=== PATIENT | female | born 1975 | race Caucasian/White ===

== ENCOUNTER 2018-08-06 08:29 | Emergency (ER) | payer MEDICAID ==
[~2018-08-06] VITALS: Ht 167.6 cm; Wt 125.3 kg
[2018-08-06 08:34] VITALS: BP 123/48
--- NOTE | 2018-08-06 08:49 | NUR ---
pt amb to bed 6
--- NOTE | 2018-08-06 08:52 | NUR ---
PATIENT PRESENTS TO ED WITH c/o chronic pain pain, denies recent injury, denies stool incontinence ambulatory with steady gait DENIES N/V/D; SKIN IS PINK/WARM/DRY; AAOX4 WITH EVEN AND STEADY GAIT; LUNGS CLEAR BL; HR EVEN AND REGULAR; PT DENIES ANY FEVER, CP, SOB, OR COUGH AT THIS TIME; PATIENT STATES PAIN OF 10/10 AT THIS TIME; VSS; PATIENT POSITIONED FOR COMFORT; HOB ELEVATED; BEDRAILS UP X2; BED DOWN. ER MD MADE AWARE OF PT STATUS.
[2018-08-06] MEDS ORDERED: KETOROLAC 60 MG/2 ML VIAL IM ONE (09:35)
[2018-08-06] MEDS ORDERED: ONDANSETRON 4 MG ODT PO ONE (11:05)
[2018-08-06] MEDS ORDERED: MORPHINE SULFATE 4 MG/ML SYR IM ONE (11:05)
[2018-08-06 11:47] VITALS: BP 129/81
--- NOTE | 2018-08-06 11:47 | NUR ---
Patient discharged with v/s stable. Written and verbal after care instructions given and explained. Patient verbalized understanding. Ambulatory with steady gait. All questions addressed prior to discharge. Advised to follow up with PMD.
== END 2018-08-06 11:47 | disposition home or self-care (01) ==
LOC: MED 08:29
DX: M54.41 Lumbago with sciatica, right side (principal); K21.9 Gastro-esophageal reflux disease without esophagitis; J45.909 Unspecified asthma, uncomplicated; F41.9 Anxiety disorder, unspecified; F32.9 Major depressive disorder, single episode, unspecified; M79.7 Fibromyalgia; Z90.49 Acquired absence of other specified parts of digestive tract; Z88.0 Allergy status to penicillin
CPT/HCPCS: 96372; 99283; J1885; J2270; Q0162

== ENCOUNTER 2019-01-08 12:02 | Emergency (ER) | payer OTHER, MEDICAID ==
[~2019-01-08] VITALS: Ht 154.9 cm; Wt 127.1 kg
[2019-01-08 12:05] VITALS: BP 99/62
[2019-01-08] MEDS ORDERED: FLUO10CA21 PO (12:30)
[2019-01-08] MEDS ORDERED: GABA300C PO (12:30)
[2019-01-08] MEDS ORDERED: HYDR-5123 PO (12:30)
--- NOTE | 2019-01-08 13:19 | NUR ---
AMBULATED TO ER BED 3
[2019-01-08] MEDS ORDERED: KETOROLAC 60 MG/2 ML VIAL IM ONE (14:05)
--- NOTE | 2019-01-08 14:09 | NUR ---
PT BIB SELF C/O COUGH, SORE THROAT, BODY ACHES X 3 DAYS, PAIN 7/10. HX-FIBROMYALGIA, CHRONIC PAIN, VERTIGO MEDS-NORCO, GABAPENTIN PROZAC
--- NOTE | 2019-01-08 15:35 | NUR ---
PROVIDED CRACKED AND APPLE JUICE TO PT. STATES FEELING HUNGRY AND FELLING NAUSEATED.
--- NOTE | 2019-01-08 18:10 | NUR ---
AWAITING DISCHARGE INFORMATION FROM
[2019-01-08 18:12] VITALS: BP 127/55
--- NOTE | 2019-01-08 18:13 | NUR ---
Patient discharged with v/s stable. Written and verbal after care instructions given and explained. Patient alert, oriented and verbalized understanding of instructions. Ambulatory with steady gait. All questions addressed prior to discharge. ID band removed. Patient advised to follow up with PMD. Rx of NAPROSYN 500 MG given. Patient educated on indication of medication including possible reaction and side effects. Opportunity to ask questions provided and answered.
== END 2019-01-08 18:13 | disposition home or self-care (01) ==
LOC: MED 12:02
DX: R09.1 Pleurisy (principal); J45.909 Unspecified asthma, uncomplicated; K21.9 Gastro-esophageal reflux disease without esophagitis; Z79.899 Other long term (current) drug therapy; Z79.891 Long term (current) use of opiate analgesic; Z91.02 Food additives allergy status; Z88.0 Allergy status to penicillin; Z91.09 Other allergy status, other than to drugs and biological substances
CPT/HCPCS: 71046; 96372; 99283; J1885

== ENCOUNTER 2019-06-10 18:30 | Emergency (ER) | payer OTHER ==
[~2019-06-10] VITALS: Ht 167.6 cm; Wt 130.6 kg
[~2019-06-10 18:30] MED LIST: FLUO10CA21 PO; GABA300C PO; HYDR-5123 PO
[2019-06-10 19:15] VITALS: BP 109/60
--- NOTE | 2019-06-10 19:15 | NUR ---
TO BED # 03 AMBULATORY
[2019-06-10] MEDS ORDERED: HYDROcodone/APAP 5/325 MG 1 TAB TAB PO ONE (20:05)
[2019-06-10 20:17] VITALS: BP 109/60
--- NOTE | 2019-06-10 21:17 | NUR ---
Patient discharged with v/s stable. She states pain reduced. 5/10 and tollerable. Written and verbal after care instructions given and explained. Patient alert, oriented and verbalized understanding of instructions. Ambulatory with crutch assist. All questions addressed prior to discharge. ID band removed. Patient advised to follow up with PMD. Rx of [place] given. Patient educated on indication of medication including possible reaction and side effects. Opportunity to ask questions provided and answered.
== END 2019-06-10 20:17 | disposition home or self-care (01) ==
LOC: MED 18:30
DX: M25.562 Pain in left knee (principal); F32.9 Major depressive disorder, single episode, unspecified; J45.909 Unspecified asthma, uncomplicated; K21.9 Gastro-esophageal reflux disease without esophagitis; Z79.899 Other long term (current) drug therapy; Z88.0 Allergy status to penicillin; Z88.8 Allergy status to other drugs, medicaments and biological substances; Z98.890 Other specified postprocedural states
CPT/HCPCS: 73562; 99283

== ENCOUNTER 2019-09-29 16:04 | Emergency (ER) | payer OTHER ==
[~2019-09-29] VITALS: Ht 170.2 cm; Wt 130.2 kg
[2019-09-29 16:07] VITALS: BP 102/49
--- NOTE | 2019-09-29 16:15 | NUR ---
PT TO TRIAGE FOR EKG, THEN TO ER LOBBY UNTIL BED IS AVAILABLE. DR GORDON MADE AWARE
--- NOTE | 2019-09-29 16:54 | NUR ---
PT TO BED 9
--- NOTE | 2019-09-29 16:55 | NUR ---
C/O INTERMITTENT SOB WITH CP RADIAITNG TO L RIBCAGE X 2 WEEKS .PT AOX4 , AFIBRILE ,SCE, ROUND ,SOFT NABS,DENIES N/V NOR DIZZINESS. PH- ASTHMA, FIBROMYALGIA, HERNIATED DISC, GLAUCOMA, BRONCHITIS, VERTIGO, MIGRAINES, ANXIETY, DEPRESSION
--- NOTE | 2019-09-29 16:55 | NUR ---
PT COMFORTABLE IN BED, EMT ADAKU PLACE CHEST LEADS TO PT, SIDE RAILS UP X1 AND LOCK.
--- NOTE | 2019-09-29 17:18 | NUR ---
XRAY AT BEDSIDE.
--- NOTE | 2019-09-29 17:50 | NUR ---
dr love at bedside evaluating pt.
[2019-09-29] MEDS ORDERED: KETOROLAC 30 MG/ML VIAL IM ONE (17:55)
[2019-09-29] MEDS ORDERED: LORazepam 1 MG TAB PO ONE (17:55)
--- NOTE | 2019-09-29 18:28 | NUR ---
NADR, PT DENIES PAIN.
[2019-09-29 18:29] VITALS: BP 116/66
--- NOTE | 2019-09-29 18:29 | NUR ---
Patient discharged with v/s stable. Written and verbal after care instructions given and explained. Patient alert, oriented and verbalized understanding of instructions. Ambulatory with steady gait. All questions addressed prior to discharge. ID band removed. Patient advised to follow up with PMD. Rx of [place] AND NAPROSYN given. Patient educated on indication of medication including possible reaction and side effects. Opportunity to ask questions provided and answered. GIVEN COPY OF XRAY RESULTS PT STATES "OH IT MUST HAVE BEEN MY ANXIETY"- DENIES PAIN
== END 2019-09-29 18:29 | disposition home or self-care (01) ==
LOC: MED 16:04
DX: F41.9 Anxiety disorder, unspecified (principal); R07.9 Chest pain, unspecified; R07.89 Other chest pain; J45.909 Unspecified asthma, uncomplicated; K21.9 Gastro-esophageal reflux disease without esophagitis; Z79.899 Other long term (current) drug therapy; Z88.0 Allergy status to penicillin; Z91.018 Allergy to other foods
CPT/HCPCS: 71045; 93005; 96372; 99283; J1885; Q0092

== ENCOUNTER 2020-09-10 15:24 | Emergency (ER) | payer OTHER ==
[~2020-09-10] VITALS: Ht 167.6 cm; Wt 86.2 kg
[~2020-09-10 15:24] MED LIST changes: +HYDR-5080 PO; -HYDR-5123 PO
[2020-09-10 15:37] VITALS: BP 119/68
--- NOTE | 2020-09-10 15:41 | NUR ---
45YO F C/O LEFT KNEE PAIN X 1 WEEK, WHICH WORSENED THIS MORNING. PT DENIES ANY INJURY OR TRAUMA TO AREA. DENIES NUMBNESS. IN ED, VSS. ABLE TO AMBULATE. 5/5 STRENGTH ON ALL EXTREMITIES. PT POSITIONED COMFORTABLY IN BED WITH 2 SIDERAILS UP. ERMD MADE AWARE OF PT STATUS. PMH - SCIATICA, FIBROMYALGIA, GERD, L MENISCAL TEAR (10YRS AGO)
[2020-09-10] MEDS ORDERED: KETOROLAC 30 MG/ML VIAL IM ONE (15:50)
--- NOTE | 2020-09-10 15:54 | NUR ---
PT TAKEN TO XR VIA W/C.
[2020-09-10] MEDS ORDERED: DICL20GE TP (16:12)
[2020-09-10 16:26] VITALS: BP 119/68
--- NOTE | 2020-09-10 16:27 | NUR ---
Patient discharged with v/s stable. Written and verbal after care instructions given and explained. Patient alert, oriented and verbalized understanding of instructions. Ambulatory with steady gait. All questions addressed prior to discharge. ID band removed. Patient advised to follow up with PMD. Rx of DICLOFENAC given. Patient educated on indication of medication including possible reaction and side effects. Opportunity to ask questions provided and answered.
== END 2020-09-10 16:27 | disposition home or self-care (01) ==
LOC: MED 15:24
DX: M25.562 Pain in left knee (principal); M54.5 Low back pain; J45.909 Unspecified asthma, uncomplicated; K21.9 Gastro-esophageal reflux disease without esophagitis; Z88.0 Allergy status to penicillin; Z88.8 Allergy status to other drugs, medicaments and biological substances
CPT/HCPCS: 73562; 96372; 99283; J1885

== ENCOUNTER 2022-08-21 12:54 | Emergency (ER) | payer OTHER ==
[~2022-08-21] VITALS: Ht 167.6 cm; Wt 127.0 kg
[~2022-08-21 12:54] MED LIST changes: +DICL20GE TP
[2022-08-21 13:01] VITALS: BP 107/61
--- NOTE | 2022-08-21 13:07 | NUR ---
BLOODY STOOLS X 2 DAYS. ALSO C/O LLQ ABDOMINAL PAIN (12/07), DESCRIBED SHARP AND CRAMPING, ALSO ENDORSING NAUSEA BUT DENIES VOMITING. DENIES FEVER, DENIES DIARRHEA. RECENTLY TREATED FOR UTI. PMH: FIBROMYALGIA, GERD, ANXIETY, DEPRESSION, HERNIATED DISK
--- NOTE | 2022-08-21 14:26 | NUR ---
Patient ambulated to bed 4.
--- NOTE | 2022-08-21 14:27 | NUR ---
AMBULATES TO BED 4 W NO DIFFULTY
[2022-08-21] MEDS ORDERED: ACETAMINOPHEN EXTRA STRENGTH 500 MG TAB PO ONE (14:45)
[2022-08-21] MEDS ORDERED: HYDROcodone/APAP 5/325 MG 1 TAB TAB PO ONE (14:45)
[2022-08-21 15:34] LABS: APPEARANCE,URINE CLEAR (CLEAR); BILIRUBIN,URINE 1+ (NEGATIVE); BLOOD, URINE 3+ (NEGATIVE); COLOR,URINE YELLOW (YELLOW); LEUKOCYTE ESTERASE ,URINE TRACE (NEGATIVE); NITRITE, URINE NEGATIVE (NEGATIVE); UGLUCOSE TRACE (NEGATIVE)
[2022-08-21 15:44] LABS: BASOPHILS % (AUTO) 0.3 % (0.0-2.0); EOSINOPHILS % (AUTO) 0.3 % (0.0-4.0); HEMATOCRIT 23.3 % (36-48); HEMOGLOBIN 7.2 g/dL (12.0-16.0); LYMPHOCYTES # (AUTO) 0.8 K/uL (2.5-16.5); MEAN CORPUSCULAR HEMOGLOBIN 19 pg (27-31); MEAN CORPUSCULAR HGB CONC 31 g/dL (33-37); MEAN CORPUSCULAR VOLUME 61.9 fL (80-94); MONOCYTES # (AUTO) 0.9 K/uL (0.8-1.0); MONOCYTES % (AUTO) 6.9 % (1.7-9.3); NEUTROPHILS % (AUTO) 86.5 % (42.2-75.2); PLATELET COUNT (AUTO) 557 K/uL (140-450); RED BLOOD CELL COUNT(AUTO) 3.76 MIL/uL (4.20-5.40); RED CELL DISTRIBUTION WIDTH 18.8 % (11.6-13.7); WHITE BLOOD COUNT (AUTO) 12.8 K/uL (4.8-10.8)
[2022-08-21 15:54] LABS: RBC,URINE 11-20 (MOD) /HPF (0-5)
[2022-08-21 16:00] LABS: ALBUMIN 2.3 g/dL (3.4-5.0); ANION GAP 10.8 (8-16); CREATININE 0.8 mg/dL (0.6-1.3); POTASSIUM 3.8 mmol/L (3.5-5.1); TOTAL BILIRUBIN 0.6 mg/dL (0.0-1.0)
--- NOTE | 2022-08-21 17:42 | NUR ---
RESTING IN BED, HUNGRY. UNDERSTANDS NPO STATUS UNTIL CLEARED BY
[2022-08-21] MEDS ORDERED: ACET-8905 PO (17:57)
[2022-08-21] MEDS ORDERED: AMOX-1230 PO (17:57)
[2022-08-21 18:15] VITALS: BP 100/56
--- NOTE | 2022-08-21 18:15 | NUR ---
Patient discharged with v/s stable. Written and verbal after care instructions given and explained. Patient alert, oriented and verbalized understanding of instructions. Ambulatory with steady gait. All questions addressed prior to discharge. ID band removed. Patient advised to follow up with PMD. Rx of AMOXICLAV given. Patient educated on indication of medication including possible reaction and side effects. Opportunity to ask questions provided and answered.
== END 2022-08-21 18:15 | disposition home or self-care (01) ==
LOC: MED 12:54
DX: K57.92 Diverticulitis of intestine, part unspecified, without perforation or abscess without bleeding (principal); D72.829 Elevated white blood cell count, unspecified; D75.839 Thrombocytosis, unspecified; N83.9 Noninflammatory disorder of ovary, fallopian tube and broad ligament, unspecified; E87.1 Hypo-osmolality and hyponatremia; D50.9 Iron deficiency anemia, unspecified; J45.909 Unspecified asthma, uncomplicated; K21.9 Gastro-esophageal reflux disease without esophagitis; Z88.0 Allergy status to penicillin; Z88.8 Allergy status to other drugs, medicaments and biological substances; Z79.899 Other long term (current) drug therapy
CPT/HCPCS: 36415; 74176; 76830; 80053; 81001; 81025; 85025; 87086; 99284; Q0092